=== PATIENT | female | born 1990 | race Caucasian/White ===

== ENCOUNTER → 2017-03-02 | Outpatient (REF) | payer OTHER ==
[~2017-03-02] MED LIST: ACET500C OR; COLA100C2 OR; IBUP800T OR; MOTR200T44 PO; PRENTAB8 PO; TYLE325T5 PO; VITAPRTA PO
== END ==
LOC: M LAB REF 17:25
PROVIDERS: ATTEND Advanced Practice Midwife
DX: Z12.4 Encounter for screening for malignant neoplasm of cervix (principal)

== ENCOUNTER → 2017-05-16 | Outpatient (REF) | payer OTHER | LOC: M SFHCPLAZ 16:59 | PROVIDERS: ATTEND Dermatology | DX: D22.9 Melanocytic nevi, unspecified (principal) ==

== ENCOUNTER → 2017-06-22 | Outpatient (REF) | payer OTHER | LOC: M WHC 16:48 | PROVIDERS: ATTEND Family Medicine | DX: N93.9 Abnormal uterine and vaginal bleeding, unspecified (principal) ==

== ENCOUNTER → 2017-06-23 | Outpatient (CLI) | payer OTHER | LOC: M ADAMS 11:18 | PROVIDERS: ATTEND Family Medicine | DX: N93.9 Abnormal uterine and vaginal bleeding, unspecified (principal) ==

== ENCOUNTER → 2017-06-25 | Outpatient (REF) | payer OTHER | LOC: M SFHCWAGY 12:07 | PROVIDERS: ATTEND Family Medicine | DX: N93.9 Abnormal uterine and vaginal bleeding, unspecified (principal) ==

== ENCOUNTER → 2017-06-29 | Outpatient (REF) | payer OTHER | LOC: M SFHCPLAZ 16:16 | PROVIDERS: ATTEND Family Medicine | DX: N93.9 Abnormal uterine and vaginal bleeding, unspecified (principal) ==

== ENCOUNTER → 2017-10-30 | Outpatient (CLI) | payer OTHER | LOC: M ADAMS 17:06 | PROVIDERS: ATTEND Specialist | DX: O20.0 Threatened abortion (principal); Z3A.00 Weeks of gestation of pregnancy not specified ==

== ENCOUNTER → 2017-11-01 | Outpatient (REF) | payer OTHER | LOC: M LABDRWAD 21:24 | PROVIDERS: ATTEND Specialist | DX: O20.0 Threatened abortion (principal); Z3A.00 Weeks of gestation of pregnancy not specified ==

== ENCOUNTER → 2017-11-27 | Outpatient (CLI) | payer OTHER ==
[2017-11-27 13:54] LABS: BASO % 0.5 % (0.0-1.0); EOS # 0.1 10^3/uL (0.0-0.50); EOS % 1.2 % (0.0-3.0); HEMATOCRIT 35.6 % (36.0-47.0); HEMOGLOBIN 11.9 g/dl (12.0-16.0); IMMATURE GRANULOCYTE % 0.2 % (0-0); LYMPH # 1.1 10^3/uL (1.5-6.5); MEAN CORPUSCULAR HEMOGLOBIN 28.5 pg (27.0-33.0); MEAN CORPUSCULAR HGB CONC 33.4 g/dl (32.0-36.5); MEAN CORPUSCULAR VOLUME 85.4 fl (80.0-96.0); MONO # 0.3 10^3/uL (0.0-0.8); NEUTROPHILS # 2.7 10^3/uL (1.8-7.7); NEUTROPHILS % 65.1 % (36.0-66.0); PLATELET COUNT, AUTOMATED 239 10^3/uL (150-450); RED BLOOD COUNT 4.17 10^6/uL (4.00-5.40); RED CELL DISTRIBUTION WIDTH 12.8 % (11.5-14.5); WHITE BLOOD COUNT 4.2 10^3/uL (4.0-10.0)
[2017-11-27 14:29] LABS: TOTAL PROTEIN,RANDOM URINE 10.5 MG/DL (0.0-12.0)
[2017-11-27 14:29] LABS: CREATININE,RANDOM URINE 59.1 MG/DL
[2017-11-27 16:45] LABS: CHLAMYDIA DNA AMPLIFICATION NEGATIVE (NEGATIVE); GC DNA AMPLIFICATION NEGATIVE (NEGATIVE)
[2017-11-27 23:07] LABS: ALT/SGPT 11 U/L (12-78); AST/SGOT 5 U/L (7-37); BILIRUBIN,TOTAL 0.3 MG/DL (0.2-1.0); CREATININE FOR GFR 0.54 MG/DL (0.55-1.02); GLOMERULAR FILTRATION RATE > 60.0 (>60); LDH LACTATE DEHYDROGENASE 130 U/L (84-246); URIC ACID 4.3 MG/DL (2.6-6.0)
[2017-11-28 10:48] LABS: RUBELLA IgG QUALITATIVE IMMUNE (IMMUNE)
[2017-11-28 10:57] LABS: HBsAg Prenatal NEGATIVE (NEGATIVE)
[2017-11-28 11:17] LABS: HEPATITIS C VIRUS ABY INDEX 0.2 INDEX (<0.8)
[2017-11-28 11:18] LABS: HIV 1&2 SCREEN CENTAUR NEGATIVE (NEGATIVE)
== END ==
LOC: M SMT 10:03
DX: Z34.01 Encounter for supervision of normal first pregnancy, first trimester (principal); Z3A.09 9 weeks gestation of pregnancy

== ENCOUNTER → 2018-02-12 | Outpatient (CLI) | payer OTHER | LOC: M WHC 08:31 | DX: Z36.9 Encounter for antenatal screening, unspecified (principal); Z3A.20 20 weeks gestation of pregnancy | CPT/HCPCS: 76811 ==

== ENCOUNTER → 2018-04-04 | Outpatient (CLI) | payer OTHER ==
[2018-04-04 14:27] LABS: BASO % 0.3 % (0.0-1.0); EOS # 0.1 10^3/uL (0.0-0.50); EOS % 2.1 % (0.0-3.0); HEMATOCRIT 32.3 % (36.0-47.0); HEMOGLOBIN 10.5 g/dl (12.0-15.5); IMMATURE GRANULOCYTE % 0.2 % (0-3.0); LYMPH # 1.1 10^3/uL (1.5-6.5); LYMPH % 19.4 % (24.0-44.0); MEAN CORPUSCULAR HEMOGLOBIN 30.4 pg (27.0-33.0); MEAN CORPUSCULAR HGB CONC 32.5 g/dl (32.0-36.5); MEAN CORPUSCULAR VOLUME 93.6 fl (80.0-96.0); MONO # 0.3 10^3/uL (0.0-0.8); MONO % 4.7 % (0.0-5.0); NEUTROPHILS # 4.2 10^3/uL (1.8-7.7); NEUTROPHILS % 73.3 % (36.0-66.0); PLATELET COUNT, AUTOMATED 155 10^3/uL (150-450); RED BLOOD COUNT 3.45 10^6/uL (4.00-5.40); RED CELL DISTRIBUTION WIDTH 14.2 % (11.5-14.5); WHITE BLOOD COUNT 5.7 10^3/uL (4.0-10.0)
[2018-04-04 14:35] LABS: GLUCOSE CHALLENGE TEST 1 HOUR 84 MG/DL (LESS THAN 140)
== END ==
LOC: M SMT 08:07
DX: Z34.82 Encounter for supervision of other normal pregnancy, second trimester (principal)

== ENCOUNTER → 2018-06-05 | Outpatient (REF) | payer OTHER | LOC: M LAB REF 13:13 | DX: Z34.83 Encounter for supervision of other normal pregnancy, third trimester (principal) | CPT/HCPCS: 87081 ==

== ENCOUNTER 2018-06-28 16:47 | Inpatient (IN) | payer OTHER ==
[2018-06-28 17:39] LABS: HEMATOCRIT 30.3 % (36.0-47.0); HEMOGLOBIN 10.3 g/dl (12.0-15.5); MEAN CORPUSCULAR HEMOGLOBIN 29.5 pg (27.0-33.0); MEAN CORPUSCULAR VOLUME 86.8 fl (80.0-96.0); PLATELET COUNT, AUTOMATED 144 10^3/uL (150-450); RED BLOOD COUNT 3.49 10^6/uL (4.00-5.40); RED CELL DISTRIBUTION WIDTH 14.4 % (11.5-14.5); WHITE BLOOD COUNT 8.2 10^3/uL (4.0-10.0)
[2018-06-28] MEDS: miSOPROStol 50 MCG 1/2 TAB (S0191) SL ×2 (17:45→21:50)
[2018-06-29] MEDS: miSOPROStol 50 MCG 1/2 TAB (S0191) SL ×2 (01:58→06:18)
[2018-06-29] MEDS: PROMETHAZINE INJ 25 MG/ML VIAL (J2550) IV (03:34)
[2018-06-29] MEDS: BUTORPHANOL 2 MG/ML INJ (J0595) IV (03:35)
[2018-06-29] MEDS ORDERED: OXYTOCIN 30 UNITS IN 0.9% NaCl 500ML IV BAG (J2590) As Ordered (11:18)
[2018-06-29] MEDS ORDERED: FENTANYL 2MCG/ML ROPIVACAINE 0.2% IN 0.9% NACL 200ML IVBAG As Ordered (12:05)
[2018-06-29] MEDS: OXYTOCIN DRIP 30 UNITS in APPROPRIATE DILUENT 1 EA IV ×2 (12:31→20:15)
[2018-06-29] MEDS: LR 1,000 ML IV (12:31)
[2018-06-29] MEDS ORDERED: NALOXONE INJ 0.4 MG/1 ML VIAL (J2310) IV (13:00)
[2018-06-29] MEDS ORDERED: LACTATED RINGER'S 1000 ML IV (13:00)
[2018-06-29] MEDS ORDERED: EPIDURAL COMMENT XX (13:00)
[2018-06-29] MEDS ORDERED: diphenhydrAMINE INJ 50MG/ML VIAL (J1200) IV (13:00)
[2018-06-29] MEDS ORDERED: ONDANSETRON 4MG/2ML VIAL (J2405) IV ×2 (13:00→20:15)
[2018-06-29] MEDS ORDERED: REFRIGERATOR IV KEYS XX (13:00)
[2018-06-29] MEDS ORDERED: EPIDURAL/PCA KEYS XX (13:00)
[2018-06-29] MEDS: FENTANYL/ROPIVACAINE/NACL BAG 200 ML EPIDURAL (13:00)
[2018-06-29] MEDS ORDERED: ePHEDrine SULFATE 25 MG/5 ML(5MG/ML) SYRINGE IV (13:00)
[2018-06-29] MEDS ORDERED: METHYLERGONOVINE MALEATE 0.2 MG TAB PO (20:15)
[2018-06-29] MEDS ORDERED: MEASLES,MUMPS,RUBELLA VACCINE INJ (MMR-II) (90707) SC (20:15)
[2018-06-29] MEDS ORDERED: RHOGAM 300 MCG (1500 IU) INJ (J2790) IM (20:15)
[2018-06-29] MEDS ORDERED: DOCUSATE SODIUM 100 MG CAP PO (20:15)
[2018-06-29] MEDS: IBUPROFEN 800 MG TAB PO (23:18)
[2018-06-30] MEDS: ACETAMINOPHEN 500 MG TAB PO ×2 (04:42→15:35)
[2018-06-30] MEDS: DIBUCAINE 1% OINTMENT 30GM TOP (04:42)
[2018-06-30] MEDS: IBUPROFEN 800 MG TAB PO ×2 (09:38→21:29)
[2018-06-30] MEDS: PRENATAL VITAMINS CHEWABLE TABLET PO (09:38)
[2018-07-01] MEDS: ACETAMINOPHEN 500 MG TAB PO (05:24)
[2018-07-01] MEDS: PRENATAL VITAMINS CHEWABLE TABLET PO (08:23)
== END 2018-07-01 13:15 | disposition home or self-care (01) | DRG 775 ==
LOC: M LDI 16:47 → M OBS 06-29 22:52 → M LDI 17:41
PROVIDERS: Specialist
PROC: 10D07Z3 Extraction of Products of Conception, Low Forceps, Via Natural or Artificial Opening (ICD-10-PCS; principal; 2018-06-29)
PROC: 10907ZC Drainage of Amniotic Fluid, Therapeutic from Products of Conception, Via Natural or Artificial Opening (ICD-10-PCS; 2018-06-29)
PROC: 3E0P7GC Introduction of Other Therapeutic Substance into Female Reproductive, Via Natural or Artificial Opening (ICD-10-PCS; 2018-06-29)
DX: O64.8XX0 Obstructed labor due to other malposition and malpresentation, not applicable or unspecified (principal); Z3A.39 39 weeks gestation of pregnancy; Z37.0 Single live birth

== ENCOUNTER → 2018-08-13 | Outpatient (CLI) | payer OTHER ==
[2018-08-13 15:04] LABS: HCG, SERUM QUANTITATIVE < 1.0 MIU/ML
== END ==
LOC: M SMT 09:16
DX: N91.1 Secondary amenorrhea (principal)
CPT/HCPCS: 84702

== ENCOUNTER → 2019-06-26 | Outpatient (REF) | payer OTHER | LOC: M LAB REF 13:16 | PROVIDERS: ATTEND Specialist | DX: Z12.4 Encounter for screening for malignant neoplasm of cervix (principal) ==

== ENCOUNTER → 2020-06-28 | Outpatient (REF) | payer OTHER ==
[~2020-06-28] MED LIST changes: +ACET-683 PO; +ACYC800T PO; +IBUP80TA PO; +PRENTAB9 PO
[2020-07-28 14:48] LABS: BASO % 0.3 % (0.0-1.0); EOS # 0.1 10^3/uL (0.0-0.5); EOS % 1.3 % (0.0-3.0); HEMATOCRIT 33.6 % (36.0-47.0); LYMPH # 1.2 10^3/uL (1.5-5.0); LYMPH % 17.4 % (24.0-44.0); MEAN CORPUSCULAR HEMOGLOBIN 30.1 pg (27.0-33.0); MEAN CORPUSCULAR HGB CONC 32.7 g/dl (32.0-36.5); MEAN CORPUSCULAR VOLUME 91.8 fl (80.0-96.0); MONO # 0.3 10^3/uL (0.0-0.8); NEUTROPHILS # 5.2 10^3/uL (1.5-8.5); NEUTROPHILS % 75.7 % (36.0-66.0); PLATELET COUNT, AUTOMATED 199 10^3/uL (150-450); RED BLOOD COUNT 3.66 10^6/uL (4.00-5.40); WHITE BLOOD COUNT 6.8 10^3/uL (4.0-10.0)
[2020-08-10 13:26] LABS: ALBUMIN 2.9 GM/DL (3.2-5.2); ALT/SGPT 18 U/L (12-78); BILIRUBIN,TOTAL 0.2 MG/DL (0.2-1.0); BLOOD UREA NITROGEN 8 MG/DL (7-18); CALCIUM LEVEL 8.6 MG/DL (8.5-10.1); CARBON DIOXIDE LEVEL 25 MEQ/L (21-32); CHLORIDE LEVEL 108 MEQ/L (98-107); CREATININE FOR GFR 0.58 MG/DL (0.55-1.30); GLOMERULAR FILTRATION RATE > 60.0 (>60); GLUCOSE, FASTING 84 MG/DL (70-100); POTASSIUM SERUM 3.6 MEQ/L (3.5-5.1); SODIUM LEVEL 140 MEQ/L (136-145); TOTAL PROTEIN 6.3 GM/DL (6.4-8.2); TOTAL PROTEIN,RANDOM URINE 42.8 MG/DL (0.0-12.0)
== END ==
LOC: M SFHCWAGY 09:29
PROVIDERS: ATTEND Obstetrics & Gynecology
DX: O16.3 Unspecified maternal hypertension, third trimester (principal); Z3A.00 Weeks of gestation of pregnancy not specified

== ENCOUNTER 2020-07-02 08:55 | Outpatient (CLI) | payer OTHER ==
[~2020-07-02 08:55] MED LIST changes: -ACET-683 PO; -ACYC800T PO; -IBUP80TA PO; -PRENTAB9 PO
[2020-09-14 13:17] LABS: HEMOGLOBIN 10.4 g/dl (12.0-15.5); RED BLOOD COUNT 3.47 10^6/uL (4.00-5.40); WHITE BLOOD COUNT 5.5 10^3/uL (4.0-10.0)
[2020-09-14 13:18] LABS: MEAN CORPUSCULAR HGB CONC 32.5 g/dl (32.0-36.5); MEAN CORPUSCULAR VOLUME 92.2 fl (80.0-96.0); PLATELET COUNT, AUTOMATED 151 10^3/uL (150-450)
[2020-09-26 03:22] LABS: ALT/SGPT 19 U/L (12-78); BILIRUBIN,TOTAL 0.2 MG/DL (0.2-1.0); GLOMERULAR FILTRATION RATE > 60.0 (>60); LDH LACTATE DEHYDROGENASE 124 U/L (84-246); URIC ACID 4.5 MG/DL (2.6-6.0)
[2020-09-26 03:22] LABS: CREATININE,RANDOM URINE 15.7 MG/DL; TOTAL PROTEIN,RANDOM URINE < 5.0 MG/DL (0.0-12.0)
== END 2020-07-02 12:42 | disposition home or self-care (01) ==
LOC: M LDO 08:55 → UNDOADMIN 13:00 → M MS5PR 13:00 → UNDODISIN 07-04 16:00
PROVIDERS: ATTEND Obstetrics & Gynecology
DX: O14.93 Unspecified pre-eclampsia, third trimester (principal); Z3A.31 31 weeks gestation of pregnancy

== ENCOUNTER → 2020-07-09 | Outpatient (CLI) | payer OTHER ==
[~2020-07-09] MED LIST changes: +ACET-683 PO; +ACYC800T PO; +IBUP80TA PO; +PRENTAB9 PO
--- NOTE | 2020-08-13 07:57 | REP ---
LIMITED OBSTETRIC ULTRASOUND CLINICAL: History of preeclampsia for growth evaluation. COMPARISON: 04/07/2020. TECHNIQUE: Transabdominal obstetrical ultrasound with color Doppler evaluation. FINDINGS: Examination demonstrates a single live intrauterine in cephalic presentation. Placenta noted posteriorly, grade 1, and without placenta previa or abruption. Amniotic fluid volume is normal. ALEXANDRA equals 10.9 cm. Cervix measures 4.4 cm in length and appears closed. BIOMETRIC MEASUREMENTS: BPD 74 mm 29 weeks 4 days HC 287 mm 31 weeks 4 days AC 273 mm 31 weeks 3 days FL 61 mm 31 weeks 5 days HL 55 mm 32 weeks 1 day heart rate equals 146 beats per minute. Gestational age by current measurements 31 weeks 1 day with estimated date of delivery 09/09/2020. Estimated weight 1747 grams (20th percentile). IMPRESSION: Single live advanced gestation in cephalic presentation demonstrating appropriate estimated weight and growth. Amniotic fluid volume normal. MTDD
== END ==
LOC: M WHC 13:53
PROVIDERS: ATTEND Advanced Practice Midwife
DX: O14.93 Unspecified pre-eclampsia, third trimester (principal)

== ENCOUNTER → 2020-07-28 | Outpatient (CLI) | payer OTHER ==
--- NOTE | 2020-08-17 10:00 | REP ---
LIMITED OBSTETRIC ULTRASOUND: CLINICAL: Growth evaluation. History of preeclampsia. TECHNIQUE: Transabdominal obstetric ultrasound with color Doppler evaluation. FINDINGS: Ultrasound examination demonstrates single live advanced gestation in cephalic presentation, identified by technologist. Placenta noted posteriorly and grade 1with out evidence for placenta previa or abruption. Amniotic fluid volume is normal. Cervix measures 3.8cm in length and appears closed. HEART RATE: 133bpm BPD: 81mm; 32 weeks 3 days HC: 306mm; 34 weeks 1 day AC: 289mm; 33 weeks 0 days FL: 65mm; 33 weeks 5 days HL: 59mm; 34 weeks 1 day Estimated age by current measurements: 33 weeks 3 days with estimated delivery date 09/12/2020. Estimated weight 2,142g (11th percentile) IMPRESSION: Single live advanced gestation in cephalic presentation demonstrating appropriate estimated weight and growth. No gross abnormalities are identified. MTDD
== END ==
LOC: M WHC 09:18
PROVIDERS: ATTEND Advanced Practice Midwife
DX: O14.93 Unspecified pre-eclampsia, third trimester (principal)

== ENCOUNTER → 2020-07-30 | Outpatient (REF) | payer OTHER | LOC: M SFHCWAGY 16:52 | PROVIDERS: ATTEND Advanced Practice Midwife | DX: Z34.03 Encounter for supervision of normal first pregnancy, third trimester (principal); Z3A.00 Weeks of gestation of pregnancy not specified ==

== ENCOUNTER 2020-08-13 09:20 | Inpatient (IN) | payer OTHER ==
[~2020-08-13] VITALS: Ht 165.1 cm; Wt 85.5 kg
[2020-08-13] VITALS (8 sets, daily range): BP systolic 125–156; BP diastolic 68–77
[~2020-08-13 09:20] MED LIST changes: -ACET-683 PO; -ACYC800T PO; -IBUP80TA PO; -PRENTAB9 PO
[2020-08-13] MEDS ORDERED: ACYC800T PO (09:44)
[2020-08-13] MEDS ORDERED: PRENTAB9 PO (09:44)
[2020-08-13] MEDS ORDERED: LACTATED RINGER'S 1000 ML IV STA (10:29)
[2020-08-13 10:46] LABS: BASO % 0.3 % (0.0-1.0); EOS # 0.1 10^3/uL (0.0-0.5); EOS % 1.3 % (0.0-3.0); HEMATOCRIT 32.4 % (36.0-47.0); HEMOGLOBIN 10.4 g/dl (12.0-15.5); LYMPH % 16.5 % (24.0-44.0); MEAN CORPUSCULAR HEMOGLOBIN 28.3 pg (27.0-33.0); MEAN CORPUSCULAR HGB CONC 32.1 g/dl (32.0-36.5); MONO # 0.4 10^3/uL (0.0-0.8); MONO % 6.1 % (0.0-5.0); NEUTROPHILS # 4.7 10^3/uL (1.5-8.5); NEUTROPHILS % 75.6 % (36.0-66.0); PLATELET COUNT, AUTOMATED 166 10^3/uL (150-450); RED BLOOD COUNT 3.68 10^6/uL (4.00-5.40); WHITE BLOOD COUNT 6.2 10^3/uL (4.0-10.0)
[2020-08-13] MEDS: miSOPROStol 50 MCG 1/2 TAB (S0191) PO SCH ×2 (10:46→14:48)
--- NOTE | 2020-08-13 11:01 | HPEPDOC ---
Obstetrical History & Physical General Date of Admission Aug 13, 2020 at 09:20 History of Present Illness Chief Complaint: Induction of labor (GHTN) Information Provided By: Patient Age: 30 : 5 Term: 3 Pre-term: 0 Abortions: 1 Livin Care Care: Good Care Dating Final EDC: Sep 03, 2020 Final EDC by: LMP LMP: Dec 03, 2019 EGA at Admission: 37.0 Antepartum Course Diagnos(e)s GHTN Height (inches): 65 Admission Weight (lbs.): 220 Past Medical History Past Obstetrical History #1: Past Obstetrical History: Primgravida Date of Delivery: Jul 14, 2012 Type of Delivery: Spontaneous Vaginal Del. Sex of Infant: Female (8#12) Complications: Yes (Shoulder Dystocia, Nuchal Cord) Past Obstetrical History #2: Past Obstetrical History: Multigravida Date of Delivery: Dec 11, 2014 Type of Delivery: Spontaneous Vaginal Del. Sex of : Male (8#15oz) Past Obstetrical History #3: Past Obstetrical History: Multigravida (2017) Date of Delivery: Nov 05, 2018 Type of Delivery: Spontaneous Vaginal Del. Sex of : Female (7#8oz) Complications: Yes (Forcep Delivery) [employer] History: Spontaneous Past Medical History Medical History Denies Surgical History: Other (Left Shoulder-2008) Family History Significant Family History: Other Family History MGM from HELLP Syndrome Social History Marital Status: Family situation: Spouse/partner home Psychosocial History: No pertinent psych hx * Smoker: non-smoker Alcohol: Denies Drugs: denies Imunizations Tdap status: current Influenza Status: needs Allergies Coded Allergies: No Known Drug Allergies (Verified Allergy, Unknown, 07/28/20) Medications Scheduled Acyclovir (Acyclovir) 800 Mg Tablet, 0.5 TAB PO 5XD No.137/Iron/Folic Acd ( Vitamin Tablet) 1 Each Tablet, 1 TAB PO DAILY Physical Examination Physical Examination GENERAL: Alert and oriented times three. BREAST: . ABDOMEN: Gravid and non-tender to touch. FETUS: Is vertex (VTX) by sterile vaginal examination (SVE), fetus is vertex (VTX) by Chris. EFW 7.5-8lbs HEART RATE: Regular rate and rhythm. LUNGS: Clear to auscultation (CTA). EXTREMITIES: No edema. No clonus. Deep tendon reflexes (DTRs) +2. Laboratory Data 24H LABS Laboratory Tests 2 08/13/20 09:32: Serology Scanned Report Hepatitis B Testing Pertinent Laboratoy Data Blood Type: B+ RBC Antibody Screen: Negative HIV: Negative Hepatitis B: Negative Hepatitis C: Negative Rapid Plasma Reagin: Nonreactive Rubella: Immune Varicella: Unknown Chlamydia/Gonorrhea: Negative Group B Streptococcus: Negative Glucose Tolerance Test: 65 Anatomy Ultrasound Ultrasound Date: April 07, 2020 Placenta Location: Posterior Normal Anatomy: Yes Placenta Previa: No Estimated Weight (grams): 243 Other Ultrasounds 07/09/20 Growth U/S shows fetus at 1747g (20%), ALEXANDRA 10.9cm 07/28/20 Preliminary Growth U/S shows fetus in 2142g (11%), ALEXANDRA 15cm. Steroid Therapy Steroid Therapy: No Vaginal Examination Dilation: None Effacement: other Station: -3 Cervical Consistency: Soft Cervical Position: Posterior Presentation: Cephalic presentation Assessment Heart Rate (FHR): 130 Variability: Moderate Accelerations: Positive Decelerations: None Tocometer Contractions: Yes Frequency: greater than 10 min/apart Strength: patient denies CTX's Multi-drug resistant Organism: No history of MDRO Assessment/Plan Assessment Rola is a 30-year-old (G)5 para (P)3-0-1-3 at 37+0 weeks by LMP on 12/03/19. Presents to Labor and Delivery (L&D) for IOL for GHTN per consult Dr Khan. Denies contractions, LOF, VB. States good FM today. Plan Admit and orient. Caustic Preparer and consent. Diet: Regular. Group B Streptococcus (GBS) Negative. Labs and intravenous (IV) per unit protocol. Counseled on Cytotec, Cervical balloon, Pitocin and induction of labor (IOL). Plans on epidural for pain relief. Lactated Ringers (LR): Bolus 500 mL, then saline lock. Anticipate normal spontaneous delivery (). C-S as appropriate. Kerrie Gonzalez CNM Aug 13, 2020 11:01
[2020-08-13 11:12] LABS: ALT/SGPT 12 U/L (12-78); BILIRUBIN,TOTAL 0.2 MG/DL (0.2-1.0); CREATININE FOR GFR 0.56 MG/DL (0.55-1.30); GLOMERULAR FILTRATION RATE > 60.0 (>60); LDH LACTATE DEHYDROGENASE 145 U/L (84-246); URIC ACID 5.5 MG/DL (2.6-6.0)
--- NOTE | 2020-08-13 19:42 | IPNPDOC ---
Text Note Date of Service The patient was seen on 08/13/20. NOTE Progress Reports feeling crampy. Denies LOF, bleeding VSS, no distress Cat I tracing, 140, + accels UC Q 3-4 minutes, mild SVE 1-2/50/-3, descends to -2 with UC Cooks catheter placed, inflated 60/40ml NS. Bloody show noted with insertion Start pitocin. Plans epidural Anticipate NSVB VS,Fishbone, I+O VS, Fishbone, I+O Laboratory Tests 08/13/20 10:17 Vital Signs Date Time Temp Pulse Resp B/P (MAP) Pulse Ox O2 Delivery O2 Flow Rate FiO2 08/13/20 18:17 97.0 68 16 136/77 (96) Kerrie Gonzalez CNM Aug 13, 2020 19:42
[2020-08-13] MEDS ORDERED: OXYTOCIN DRIP 30 UNITS in IV 1 EA IV SCH (19:45)
[2020-08-13] MEDS: LR 1,000 ML IV SCH (20:02)
[2020-08-13] MEDS ORDERED: PROMETHAZINE INJ 25 MG/ML VIAL (J2550) IV ONE (21:45)
[2020-08-13] MEDS ORDERED: BUTORPHANOL 2 MG/ML INJ (J0595) IV ONE (21:45)
[2020-08-14] VITALS (85 sets, daily range): BP systolic 83–194; BP diastolic 48–96
--- NOTE | 2020-08-14 00:49 | IPNPDOC ---
Text Note Date of Service The patient was seen on 08/14/20. NOTE Progress Remains comfortable after stadol/phenergan Pitocin @ 4 mu FH 135, Cat I UC 2-3 minutes x 60+ seconds, moderate SVE 5-6/75/-3, moderate bloody show Continue IOL. Consider AROM. VS,Fishbone, I+O VS, Fishbone, I+O Laboratory Tests 08/13/20 10:17 Vital Signs Date Time Temp Pulse Resp B/P (MAP) Pulse Ox O2 Delivery O2 Flow Rate FiO2 08/13/20 21:58 16 08/13/20 18:17 97.0 68 136/77 (96) I&O- Last 24 Hours up to 6 AM 08/14/20 06:00 Intake Total 980 ml Balance 980 ml Kerrie Gonzalez CNM Aug 14, 2020 00:49
[2020-08-14] MEDS ORDERED: FENTANYL 2MCG/ML ROPIVACAINE 0.2% IN 0.9% NACL 100ML IVBAG As Ordered ONE (03:11)
[2020-08-14] MEDS: FENTANYL/ROPIVACAINE/NACL BAG 100 ML EPIDURAL SCH ×2 (03:57→14:00)
[2020-08-14] MEDS ORDERED: EPIDURAL COMMENT XX SCH (04:00)
[2020-08-14] MEDS ORDERED: NALOXONE INJ 0.4MG/1ML VIAL (J2310 PER 1MG) IV PRN (04:00)
[2020-08-14] MEDS ORDERED: ONDANSETRON 4MG/2ML VIAL IV PRN ×2 (04:00→22:00)
[2020-08-14] MEDS ORDERED: REFRIGERATOR IV KEYS XX PRN (04:00)
[2020-08-14] MEDS ORDERED: ePHEDrine SULFATE 25 MG/5 ML(5MG/ML) SYRINGE IV PRN (04:00)
[2020-08-14] MEDS ORDERED: EPIDURAL/PCA KEYS XX PRN (04:00)
[2020-08-14] MEDS ORDERED: LACTATED RINGER'S 1000 ML IV PRN (04:00)
[2020-08-14] MEDS: LR 1,000 ML IV SCH ×2 (12:00→18:51)
--- NOTE | 2020-08-14 12:15 | IPNPDOC ---
Text Note Date of Service The patient was seen on 08/14/20. NOTE Intrapartum Note Rola is a 30yo with SIUP at 37w1d admitted yesterday for IOL for GHTN. She had induction started with cook sorenson catheter and pitocin. Pitocin has been titrated up, currently 18mu. She received epidural last night and is comfortable currently. No s/sx of pre-E. Vitals wnl Cat I FHRT Ctx q3-5min SCE: 5/50/-3, fundal pressure applied during ctx and FSE placed with intent for AROM which occurred without issue. Bloody show noted. Well tolerated. Will continue to titrate pitocin per protocol, may need to decrease depending on ctx pattern s/p AROM Plan to re-check in 2-4hr or earlier as indicated Dr. Merari Khan MD VS,Mariah, I+O VS, Mariah, I+O Vital Signs Date Time Temp Pulse Resp B/P (MAP) Pulse Ox O2 Delivery O2 Flow Rate FiO2 08/13/20 21:58 16 08/13/20 18:17 97.0 68 136/77 (96) I&O- Last 24 Hours up to 6 AM 08/14/20 06:00 Intake Total 980 ml Balance 980 ml Merari Khan MD Aug 14, 2020 12:15
--- NOTE | 2020-08-14 14:53 | IPNPDOC ---
Text Note Date of Service The patient was seen on 08/14/20. NOTE Intrapartum Note Pt doing well, feeling some pelvic pressure but overall comfortable. Pitocin at 18mu. Vitals wnl, afebrile Cat I FHRT ctx q3-6min SCE: /-3. FSE functioning. Will continue to titrate pitocin per protocol Closely observe Plan to re-check in 2-4hr or earlier as indicated Safe to proceed Merari Khan MD VS,Mariah, I+O VSMariah I+O Vital Signs Date Time Temp Pulse Resp B/P (MAP) Pulse Ox O2 Delivery O2 Flow Rate FiO2 08/13/20 21:58 16 08/13/20 18:17 97.0 68 136/77 (96) I&O- Last 24 Hours up to 6 AM 08/14/20 06:00 Intake Total 980 ml Balance 980 ml Merari Khan MD Aug 14, 2020 14:53
--- NOTE | 2020-08-14 17:15 | IPNPDOC ---
Text Note Date of Service The patient was seen on 08/14/20. NOTE Intrapartum Note Pt doing well, gently breathing with ctx. Pitocin at 20mu. Vitals wnl, afebrile Cat I FHRT ctx q3-4min SCE: /-3. FSE functioning. IUPC placed to assess MVUs. No s/sx of pre-E. Will continue to titrate pitocin per protocol, ok to titrate above 20 (up to 30)mu per protocol as needed to obtain adequate MVUs Discussed timeline with patient- if zero change in cervix by 2100 tonight, would be considered arrest of dilation and indication for Closely observe Plan to re-check in 2-4hr or earlier as indicated Safe to proceed Merari Khan MD VS,Mariah, I+O VSMariah I+O Vital Signs Date Time Temp Pulse Resp B/P (MAP) Pulse Ox O2 Delivery O2 Flow Rate FiO2 08/13/20 21:58 16 08/13/20 18:17 97.0 68 136/77 (96) I&O- Last 24 Hours up to 6 AM 08/14/20 06:00 Intake Total 980 ml Balance 980 ml Merari Khan MD Aug 14, 2020 17:15
[2020-08-14] MEDS ORDERED: METHYLERGONOVINE MALEATE 0.2 MG/ML VIAL (J2210) As Ordered ONE (19:52)
[2020-08-14] MEDS ORDERED: CARBOPROST TROMETHAMINE 250 MCG/ML AMP As Ordered ONE (20:19)
[2020-08-14 20:29] LABS: HEMATOCRIT 30.9 % (36.0-47.0); HEMOGLOBIN 9.6 g/dl (12.0-15.5); MEAN CORPUSCULAR HEMOGLOBIN 28.2 pg (27.0-33.0); MEAN CORPUSCULAR HGB CONC 31.1 g/dl (32.0-36.5); MEAN CORPUSCULAR VOLUME 90.6 fl (80.0-96.0); PLATELET COUNT, AUTOMATED 153 10^3/uL (150-450); RED BLOOD COUNT 3.41 10^6/uL (4.00-5.40); WHITE BLOOD COUNT 10.6 10^3/uL (4.0-10.0)
[2020-08-14] MEDS ORDERED: METHYLERGONOVINE MALEATE 0.2 MG/ML VIAL (J2210) IM ONE (22:00)
[2020-08-14] MEDS ORDERED: ACETAMINOPHEN TAB 650MG DOSE (2X325MG) PO PRN (22:00)
[2020-08-14] MEDS ORDERED: TRANEXAMIC ACID INJection 1,000 MG in D5W 100 ML IV ONE (22:00)
[2020-08-14] MEDS ORDERED: IBUPROFEN 600MG TAB PO PRN (22:00)
[2020-08-14] MEDS ORDERED: miSOPROStol 200 MCG TAB (S0191) PR ONE (22:00)
[2020-08-14] MEDS ORDERED: OXYTOCIN DRIP 30 UNITS in IV 1 EA IV SCH ×4 (22:00)
[2020-08-14] MEDS ORDERED: DIBUCAINE 1% OINTMENT 30GM TOP PRN (22:00)
[2020-08-14] MEDS ORDERED: LOPERAMIDE 2 MG CAPLET PO ONE (22:00)
[2020-08-14] MEDS ORDERED: CARBOPROST TROMETHAMINE 250 MCG/ML AMP IM ONE (22:00)
[2020-08-14] MEDS ORDERED: RHOGAM 300 MCG (1500 IU) INJ (J2790) IM SCH (22:00)
[2020-08-14] MEDS ORDERED: MEASLES,MUMPS,RUBELLA VACCINE INJ (MMR-II) (90707) SC SCH (22:00)
[2020-08-14] MEDS: LOPERAMIDE 2 MG CAPLET PO PRN (23:12)
[2020-08-15] VITALS (29 sets, daily range): BP systolic 102–128; BP diastolic 56–88
--- NOTE | 2020-08-15 00:51 | DNPDOC ---
[facility] Delivery Note Delivery Note DATE OF DELIVERY: 08/14/2020 PREDELIVERY DIAGNOSIS: 37w1d IOL for GHTN POST DELIVERY DIAGNOSIS: Delivered hemorrhage PROCEDURE: Spontaneous vaginal delivery GANG INVESTIGATOR: Dr. Merari Khan MD ANESTHESIA: epidural ESTIMATED BLOOD LOSS: 1000 mL. FINDINGS: 5 pound 9 ounce (2510g) female , Score 9/9 DELIVERY SUMMARY: Rola is a 30yo [id number] s/p at 1937 on 08/14 after undergoing IOL for GHTN, delivering at 37w1d. She had IOL started with cook sorenson catheter and pitocin (which she received >24hr). She made slow progress to 6cm, and AROM was performed with clear fluid noted. She remained 6cm for >4hr and station was -3 until finally she quickly progressed to C/C/+1. At that point she began pushing. Infant delivered OA, restituted MELISSA. Left anterior shoulder delivered followed by posterior shoulder and corpus. Spontaneous cry noted, placed on maternal abdomen. Cord clamped x2 after approximately 2 minutes and cut by FOB. With fundal massage and traction on the cord, placenta delivered spontaneously and intact with 3 vessel cord centrally inserted. At this time, patient already had approximately 500ml of EBL just from the delivery and waiting for placenta to separate while actively massaging the fundus. IV pitocin given per protocol. More uterine massage performed and fundus then firm at u-2cm with hemostasis noted initially. Inspection of perineum and vagina revealed no lacerations. Uterine massage was repeated and productive of large clot with continued trickling. Manual sweep revealed nothing retained within the uterus and the fundal portion of the uterus had excellent tone, while the lower uterine segment was boggy with "floppy cervix". At that point, patient received 0.2mg IM methergine and 800mcg DE cytotec. Gloves changed. More uterine massage and sweep of lower uterine segment produced more clot with continued trickling- this happened several times. Patient was given 250mcg IM hemabate and I walked the cervix with ring forceps, noting no obvious cervical laceration. Patient's blood pressure dropped to 80's/40's and she was bolused 500ml LR- she felt nauseous and faint at this point, but as fluid was bolused and uterotonics started to take effect, bp steadily genesis to 90's/50's then 110's/60's, and she felt much better only complaining then of fatigue. Stat CBC was performed and H/H at that point was 9.6/30.9. I left the room when patient had improved and she was hemostatic. However, at next fundal check by the nurse, patient was noted to have large amounts of clot with continued trickling, and I was called back into the room. I performed a manual sweep of ROLAND again and found only the ROLAND to be atonic again. It was at that point that I decided to place packing into the uterus (I knew that Bakri balloon would not work for the patient since her cervix was floppy and fundal portion of the uterus had extremely good tone). Uterus was packed with >2 yards of vaginal packing material, which was tolerated well by the patient. I also ordered TXA 1g IV to be given and Unasyn 3g IV q6hr while the packing is in place. Plan for packing to be removed at noon tomorrow. Sorenson catheter was replaced and will be removed tomorrow as well. Patient to remain on L&D overnight to closely observe. Will repeat CBC in the am. Total EBL 1000ml. Discussed possibility of blood transfusion with patient based on labs/sx that we see tomorrow, and she is understanding. Imodium given to counteract effects of hemabate. All counts correct x2. Patient was doing well when I left the room, infant taken to NICU for evaluation of respiratory status. MD Bill Virk Katrina D MD Aug 14, 2020 23:38
[2020-08-15] MEDS: AMPICILLIN SOD/SULBACTAM SOD 3 GM in D5W MINI-BAG PLUS 100 ML IV SCH ×3 (00:58→11:51)
[2020-08-15] MEDS: LOPERAMIDE 2 MG CAPLET PO PRN (03:18)
[2020-08-15] MEDS: ACETAMINOPHEN 500 MG TAB PO PRN (05:57)
[2020-08-15 07:39] LABS: HEMATOCRIT 21.7 % (36.0-47.0); MEAN CORPUSCULAR HEMOGLOBIN 27.8 pg (27.0-33.0); MEAN CORPUSCULAR HGB CONC 31.3 g/dl (32.0-36.5); MEAN CORPUSCULAR VOLUME 88.6 fl (80.0-96.0); PLATELET COUNT, AUTOMATED 121 10^3/uL (150-450); RED BLOOD COUNT 2.45 10^6/uL (4.00-5.40); WHITE BLOOD COUNT 8.3 10^3/uL (4.0-10.0)
[2020-08-15 07:56] LABS: HEMOGLOBIN 6.8 g/dl (12.0-15.5)
[2020-08-15] MEDS ORDERED: diphenhydrAMINE 50MG/ML VIAL (J1200) IV ONE (09:00)
[2020-08-15] MEDS: diphenhydrAMINE 50MG/ML VIAL (J1200) IV PRN ×3 (09:17→20:46)
[2020-08-15] MEDS: PRENATAL VITAMINS CHEWABLE TABLET PO SCH (09:18)
--- NOTE | 2020-08-15 09:43 | IPNPDOC ---
Progress Note Date of Service: Aug 15, 2020 Day#: 1 Progress Note PPD 1 SUBJECT: Rola is a 30yo [id number] s/p at 1937 on 08/14 after undergoing IOL for GHTN, delivering at 37w1d, and having experienced a PPH of 1000ml related to atony of lower uterine segment. For tx of PPH she received: 0.2mg IM methergine, 800mcg rectal cytotec, 250mcg IM hemabate, 1g IV TXA and ultimately had intra- uterine packing placed, which is still present. She has been receiving Unasyn 3g IV q6hr while packing in place. Also notable during her labor course, she had a "wet tap" epidural/spinal and this morning complains of headache with sudden movements and sitting up straight. She has received tylenol for DAMON and is drinking some caffeine. She has sorenson catheter in place and has not yet ambulated since delivery. Tolerating regular diet. Baby is in NICU for respiratory status. Patient has been breast pumping regularly. No n/v/f/c/CP/SOB this morning. OBJECTIVE: VITAL SIGNS: Within normal limits, afebrile. Alert and oriented times three. Abdomen: Fundus firm at U-2. Soft, NTTP. Uterine packing still in place, the tail end is outside of the vagina and has saturation of blood. Nurses have been changing the chucks pads underneath the patient regularly and there has been no brisk bleeding, only small trickle with uterine massages Extremities: no edema of BLE Labs: Starting H/H: 10.4/32.4 H/H immediately after PPH: 9.6/30.9 PPD 1 H/H: 6.8/21.7 ASSESSMENT: Rola is a 30yo [id number] s/p at 1937 on 08/14 after undergoing IOL for GHTN, delivering at 37w1d, and having experienced a PPH of 1000ml related to atony of lower uterine segment treated with multiple uterotonics and eventually uterine packing which is still in place. Vitals within normal limits, afebrile. Likely spinal headache. H/H 6.8/21.7, patient needs blood transfusion PLAN: 1. Routine PP care on L&D today until uterine packing removed, plan to remove slowly starting around mid-day 2. Transfuse 2 units of cross matched pRBCs, discussed r/b/a with patient and we both signed consent form 3. Tylenol and Motrin for pain. 4. Encourage breast pumping and visitation of baby in NICU (wheelchair until packing removed and demonstrated stability later) 5. Regular diet 6. Anesthesia has evaluated patient for possible spinal DAMON and may do blood patch tomorrow if DAMON still present Merari Khan MD VS, I&O, 24H, Fishbone Vital Signs/I&O Vital Signs Date Time Temp Pulse Resp B/P (MAP) Pulse Ox O2 Delivery O2 Flow Rate FiO2 08/15/20 09:15 94 08/15/20 09:14 115/72 (86) 08/15/20 09:13 97.3 16 99 Room Air I&O- Last 24 Hours up to 6 AM 08/15/20 06:00 Intake Total 1000 ml Output Total 6025 ml Balance -5025 ml Laboratory Data 24H LABS Laboratory Tests 2 08/14/20 20:18: Nucleated Red Blood Cells % (auto) 0.0 08/15/20 07:25: Nucleated Red Blood Cells % (auto) 0.0 CBC/BMP Laboratory Tests 08/14/20 20:18 08/15/20 07:25 Merari Khan MD Aug 15, 2020 09:42
[2020-08-15] MEDS ORDERED: NS 500 ML IV SCH (10:00)
[2020-08-15] MEDS ORDERED: NS 500 ML IV ONE (10:15)
[2020-08-15] MEDS: FIORICET TAB PO PRN (11:39)
[2020-08-15] MEDS: METHYLERGONOVINE MALEATE 0.2 MG TAB PO SCH ×2 (16:47→22:07)
--- NOTE | 2020-08-15 16:58 | IPNPDOC ---
Text Note Date of Service The patient was seen on 08/15/20. NOTE Removal of packing Rola is doing ok. She has a bit of swelling she noted under her left eye, sensation of some increased fullness to her face, and her left ear feels warm. Likely related to something she has received, but hard to discern whether blood products (finished transfusion of 2nd pRBC at 1420) or Unasyn or fioricet, etc. She has received benadryl, no relief quite yet. Still feels nauseous with headache when she tries to stand up/ambulate- may be related to spinal headache from wet tap. She did go to visit baby in NICU earlier which made her happy. She continues to pump colostrum for baby. Vitals wnl, afebrile Vaginal packing very slowly removed over the course of 15 minutes with no noted vaginal bleeding during or immediately after Robust UOP, sorenson still in place Will plan to observe very closely- patient instructed to remain lying down for 1 hour, then will attempt to get her up to bathroom If no uptick in bleeding other than normal lochia, sorenson catheter can be removed Will begin methergine PO series for 3 total doses q4hr Will discontinue Unasyn CBC 6hr post transfusion Safe to proceed Merari Khan MD VS,Mariah I+O VSMariah I+O Laboratory Tests 08/14/20 20:18 08/15/20 07:25 Vital Signs Date Time Temp Pulse Resp B/P (MAP) Pulse Ox O2 Delivery O2 Flow Rate FiO2 08/15/20 14:21 97.6 114 116/82 99 Room Air 08/15/20 13:56 18 08/15/20 10:03 98.0 I&O- Last 24 Hours up to 6 AM 08/15/20 06:00 Intake Total 1000 ml Output Total 6025 ml Balance -5025 ml Merari Khan MD Aug 15, 2020 16:58
[2020-08-15 20:23] LABS: HEMOGLOBIN 8.6 g/dl (12.0-15.5); MEAN CORPUSCULAR HEMOGLOBIN 28.3 pg (27.0-33.0); MEAN CORPUSCULAR HGB CONC 31.9 g/dl (32.0-36.5); MEAN CORPUSCULAR VOLUME 88.8 fl (80.0-96.0); PLATELET COUNT, AUTOMATED 126 10^3/uL (150-450); RED BLOOD COUNT 3.04 10^6/uL (4.00-5.40); WHITE BLOOD COUNT 8.2 10^3/uL (4.0-10.0)
[2020-08-16] MEDS: METHYLERGONOVINE MALEATE 0.2 MG TAB PO SCH (01:19)
[2020-08-16 02:00] VITALS: BP 140/88
[2020-08-16] MEDS: diphenhydrAMINE 50MG/ML VIAL (J1200) IV PRN (02:31)
[2020-08-16] MEDS: ACETAMINOPHEN 500 MG TAB PO PRN ×2 (02:32→10:32)
[2020-08-16 06:00] VITALS: BP 116/64
[2020-08-16] MEDS: IBUPROFEN 800 MG TAB PO PRN ×2 (06:44→14:13)
[2020-08-16] MEDS: PRENATAL VITAMINS CHEWABLE TABLET PO SCH (08:39)
--- NOTE | 2020-08-16 09:10 | IPNPDOC ---
Progress Note Date of Service: Aug 16, 2020 Day#: 1 Progress Note PPD 2 SUBJECT: Rola is a 30yo [id number] s/p at 193 on 08/14 after undergoing IOL for GHTN, delivering at 37w1d, and having experienced a PPH of 1000ml related to atony of lower uterine segment. For tx of PPH she received: 0.2mg IM methergine, 800mcg rectal cytotec, 250mcg IM hemabate, 1g IV TXA and ultimately had intra- uterine packing placed. She received Unasyn 3g IV q6hr while packing was in place. Hgb nadired at 6.8, so she was transfused 2 units pRBCs and Hgb increased to 8.6. Packing was removed afternoon of PPD 1 with only normal lochia since. She received PO methergine series for 12hr after packing removed. Also notable during her labor course, she had a "wet tap" epidural/spinal and has had waxing/waning headache with sudden movements and sitting up straight. She has received tylenol for DAMON and notes it is not very bad this morning. She has been voiding spontaneously without issue. No lightheadedness/dizziness with walking. Tolerating regular diet. Baby is in NICU for respiratory status and patient visits regularly. Patient has been breast pumping. No n/v/f/c/CP/SOB. OBJECTIVE: VITAL SIGNS: Within normal limits, afebrile. Alert and oriented times three. Abdomen: Fundus firm at U-2. Soft, NTTP. Extremities: no edema of BLE and no pain with palpation of calves Labs: Starting H/H: 10.4/32.4 H/H immediately after PPH: 9.6/30.9 PPD 1 H/H: 6.8/21.7 H/H post-transfusion: 8.05/15 ASSESSMENT: Rola is a 30yo [id number] s/p at 193 on 08/14 after undergoing IOL for GHTN, delivering at 37w1d, and having experienced a PPH of 1000ml related to atony of lower uterine segment treated with multiple uterotonics and eventually uterine packing which was removed afternoon of PPD 1 with only normal lochia since. Vitals within normal limits, afebrile. Possible spinal headache waxes and wanes. Hgb improved from 6.8 to 8.6 with transfusion of 2u pRBCs and patient has no sx of anemia. Hemodynamically stable with no e/o infection. PLAN: 1. Routine PP care 2. Tylenol and Motrin for pain. 3. Encourage breast pumping and visitation of baby in NICU 4. Regular diet 5. Anesthesia has evaluated patient for possible spinal DAMON and may do blood patch if indicated 6. Likely discharge to home vs boarding tomorrow Merari Khan MD VS, I&O, 24H, [facility] Vital Signs/I&O Vital Signs Date Time Temp Pulse Resp B/P (MAP) Pulse Ox O2 Delivery O2 Flow Rate FiO2 08/16/20 06:00 97.6 69 17 116/64 (81) 98 Room Air 08/15/20 10:03 98.0 I&O- Last 24 Hours up to 6 AM 08/16/20 06:00 Intake Total 2302 ml Output Total 5600 ml Balance -3298 ml Laboratory Data 24H LABS Laboratory Tests 2 08/15/20 20:13: Nucleated Red Blood Cells % (auto) 0.0 CBC/BMP Laboratory Tests 08/15/20 20:13 Merari Khan MD Aug 16, 2020 09:10
[2020-08-16] MEDS ORDERED: fentaNYL 100 MCG/2 ML INJECTION (J3010) As Ordered ONE (18:00)
[2020-08-16] MEDS ORDERED: MIDAZOLAM INJ 2MG/2ML VIAL (J2250 PER 1MG) As Ordered ONE (18:00)
[2020-08-16] MEDS ORDERED: SLF 3 ML SYR IV PRN (18:30)
[2020-08-16 19:45] VITALS: BP 121/69
[2020-08-16] MEDS ORDERED: fentaNYL 100 MCG/2 ML INJECTION (J3010) IV PRN (20:00)
[2020-08-16] MEDS ORDERED: MIDAZOLAM INJ 2MG/2ML VIAL (J2250 PER 1MG) IV PRN (20:00)
[2020-08-16] MEDS ORDERED: LR 1,000 ML IV SCH (20:00)
[2020-08-16 22:00] VITALS: BP 119/73
[2020-08-16] MEDS: SLF 3 ML SYR IV SCH (22:00)
[2020-08-16] MEDS: FIORICET TAB PO PRN (22:50)
[2020-08-17 02:00] VITALS: BP 128/86
[2020-08-17] MEDS: FIORICET TAB PO PRN ×3 (05:18→13:14)
[2020-08-17 06:00] VITALS: BP 134/79
[2020-08-17] MEDS: SLF 3 ML SYR IV SCH (06:01)
[2020-08-17] MEDS ORDERED: IBUP80TA PO (07:18)
[2020-08-17] MEDS ORDERED: ACET-683 PO (07:18)
[2020-08-17] MEDS: PRENATAL VITAMINS CHEWABLE TABLET PO SCH (09:00)
[2020-08-17 10:00] VITALS: BP 144/82
== END 2020-08-17 14:10 | disposition home or self-care (01) | DRG 807 ==
LOC: M LDI 09:20 → M OBS 08-15 23:09
PROVIDERS: ADMIT Advanced Practice Midwife; ATTEND Obstetrics & Gynecology
PROC: 3E0P7GC Introduction of Other Therapeutic Substance into Female Reproductive, Via Natural or Artificial Opening (ICD-10-PCS; 2020-08-13)
PROC: 10E0XZZ Delivery of Products of Conception, External Approach (ICD-10-PCS; principal; 2020-08-14)
PROC: 10907ZC Drainage of Amniotic Fluid, Therapeutic from Products of Conception, Via Natural or Artificial Opening (ICD-10-PCS; 2020-08-14)
PROC: 30233N1 Transfusion of Nonautologous Red Blood Cells into Peripheral Vein, Percutaneous Approach (ICD-10-PCS; 2020-08-15)
PROC: 3E0R3KZ Introduction of Other Diagnostic Substance into Spinal Canal, Percutaneous Approach (ICD-10-PCS; 2020-08-16)
DX: O13.4 Gestational [pregnancy-induced] hypertension without significant proteinuria, complicating childbirth (principal); Z37.0 Single live birth; Z3A.37 37 weeks gestation of pregnancy; O72.1 Other immediate postpartum hemorrhage; O74.5 Spinal and epidural anesthesia-induced headache during labor and delivery

== ENCOUNTER → 2021-04-15 | Outpatient (CLI) | payer OTHER ==
[~2021-04-15] MED LIST changes: +ACET-683 PO; +ACYC1TAB4 PO; +IBUP80TA PO; +PRENTAB9 PO
== END ==
LOC: M WHC 09:35
PROVIDERS: ATTEND Specialist
DX: Z53.20 Procedure and treatment not carried out because of patient's decision for unspecified reasons (principal)

== ENCOUNTER → 2021-04-21 | Outpatient (CLI) | payer OTHER ==
--- NOTE | 2021-04-21 12:32 | REP ---
INDICATION: N94.6 DYSMENORRHEA COMPARISON: None. TECHNIQUE: Transabdominal pelvic ultrasound followed by transvaginal examination for better evaluation of the endometrium and adnexa with color Doppler evaluation of the ovaries. FINDINGS: Bladder is unremarkable and measures 12.4 x 7.7 x 9.9 cm. Normal anteverted uterus measures 6.3 x 2.5 x 5.4 cm. The endometrial complex measures 5 mm thickness. Small 4 mm endometrial echogenic focus is nonspecific and likely represents calcification. Bilateral ovaries are normal in appearance and vascularity without evidence for torsion. Right ovary measures 4.0 x 3.0 x 3.7 cm with 2.8 cm dominant follicle; R I = 0.53. Left ovary measures 2.7 x 1.6 x 2.5 cm; R I = 0.57. No pelvic fluid or adnexal mass lesion IMPRESSION: Essentially normal pelvic ultrasound. <Electronically signed by Olvin Greer > 04/21/21 [id number]
== END ==
LOC: M WHC 11:01
PROVIDERS: ATTEND Specialist
DX: N94.6 Dysmenorrhea, unspecified (principal)

== ENCOUNTER → 2021-06-22 | Outpatient (REF) | payer OTHER ==
[2021-06-22 17:06] LABS: BASO % 0.8 % (0.0-1.0); EOS # 0.2 10^3/uL (0.0-0.5); EOS % 3.5 % (0.0-3.0); HEMATOCRIT 40.2 % (36.0-47.0); HEMOGLOBIN 12.6 g/dl (12.0-15.5); LYMPH # 1.6 10^3/uL (1.5-5.0); LYMPH % 33.3 % (24.0-44.0); MEAN CORPUSCULAR HEMOGLOBIN 26.5 pg (27.0-33.0); MEAN CORPUSCULAR HGB CONC 31.3 g/dl (32.0-36.5); MEAN CORPUSCULAR VOLUME 84.5 fl (80.0-96.0); MONO # 0.3 10^3/uL (0.0-0.8); MONO % 5.4 % (2.0-8.0); NEUTROPHILS # 2.8 10^3/uL (1.5-8.5); NEUTROPHILS % 56.8 % (36.0-66.0); PLATELET COUNT, AUTOMATED 236 10^3/uL (150-450); RED BLOOD COUNT 4.76 10^6/uL (4.00-5.40); WHITE BLOOD COUNT 4.8 10^3/uL (4.0-10.0)
[2021-06-22 17:43] LABS: ALBUMIN 4.3 GM/DL (3.2-5.2); ALT/SGPT 19 U/L (12-78); BILIRUBIN,TOTAL 0.3 MG/DL (0.2-1.0); BLOOD UREA NITROGEN 14 MG/DL (7-18); CALCIUM LEVEL 9.4 MG/DL (8.5-10.1); CARBON DIOXIDE LEVEL 28 MEQ/L (21-32); CHLORIDE LEVEL 106 MEQ/L (98-107); CHOLESTEROL LEVEL 163 MG/DL (<200); CREATININE FOR GFR 0.76 MG/DL (0.55-1.30); GLOMERULAR FILTRATION RATE > 60.0 (>60); GLUCOSE, FASTING 89 MG/DL (70-100); HDL CHOLESTEROL 25 MG/DL (>40); NON-HDL-C 138 MG/DL; POTASSIUM SERUM 4.3 MEQ/L (3.5-5.1); PROLACTIN 4.4 NG/ML; SODIUM LEVEL 140 MEQ/L (136-145); TOTAL PROTEIN 7.9 GM/DL (6.4-8.2); TRIGLYCERIDES LEVEL 433 MG/DL (<150)
== END ==
LOC: M SFHCADAM 11:37
PROVIDERS: ATTEND Family Medicine
DX: Z00.00 Encounter for general adult medical examination without abnormal findings (principal); Z87.59 Personal history of other complications of pregnancy, childbirth and the puerperium; R53.83 Other fatigue

== ENCOUNTER → 2021-07-08 | Outpatient (REF) | payer OTHER | LOC: M SFHCADAM 09:41 | PROVIDERS: ATTEND Family Medicine | DX: R79.89 Other specified abnormal findings of blood chemistry (principal) ==

== ENCOUNTER → 2022-03-21 | Outpatient (CLI) | payer OTHER | LOC: M WHC 07:54 | PROVIDERS: ATTEND Family Medicine | DX: N63.11 Unspecified lump in the right breast, upper outer quadrant (principal); N64.4 Mastodynia | CPT/HCPCS: 76642; 77065; G0279 ==

== ENCOUNTER → 2022-03-30 | Outpatient (REF) | payer OTHER | LOC: M SFHCADAM 15:58 | PROVIDERS: ATTEND Physician Assistant Medical | DX: R53.82 Chronic fatigue, unspecified (principal); M25.519 Pain in unspecified shoulder; M79.10 Myalgia, unspecified site ==

== ENCOUNTER → 2022-03-30 | Outpatient (REF) | payer OTHER ==
[2022-03-30 16:25] LABS: BASO % 0.5 % (0.0-1.0); EOS # 0.1 10^3/uL (0.0-0.5); EOS % 1.5 % (0.0-3.0); HEMATOCRIT 36.6 % (36.0-47.0); HEMOGLOBIN 12.1 g/dl (12.0-15.5); LYMPH # 1.8 10^3/uL (1.5-5.0); LYMPH % 29.6 % (24.0-44.0); MEAN CORPUSCULAR HEMOGLOBIN 27.4 pg (27.0-33.0); MEAN CORPUSCULAR HGB CONC 33.1 g/dl (32.0-36.5); MONO # 0.3 10^3/uL (0.0-0.8); MONO % 5.3 % (2.0-8.0); NEUTROPHILS # 3.9 10^3/uL (1.5-8.5); NEUTROPHILS % 62.9 % (36.0-66.0); PLATELET COUNT, AUTOMATED 194 10^3/uL (150-450); RED BLOOD COUNT 4.41 10^6/uL (4.00-5.40); WHITE BLOOD COUNT 6.2 10^3/uL (4.0-10.0)
[2022-03-30 16:53] LABS: ERYTHROCYTE SEDIMENTATION RATE 13 mm/hr (0-20)
[2022-03-30 17:09] LABS: ALBUMIN 4.1 GM/DL (3.2-5.2); ALT/SGPT 17 U/L (12-78); BILIRUBIN,TOTAL 0.4 MG/DL (0.2-1.0); BLOOD UREA NITROGEN 16 MG/DL (7-18); CALCIUM LEVEL 8.8 MG/DL (8.5-10.1); CARBON DIOXIDE LEVEL 27 MEQ/L (21-32); CHLORIDE LEVEL 108 MEQ/L (98-107); CREATININE FOR GFR 0.76 MG/DL (0.55-1.30); FREE T4 0.88 NG/DL (0.76-1.46); GLOMERULAR FILTRATION RATE > 60.0 (>60); GLUCOSE, FASTING 90 MG/DL (70-100); POTASSIUM SERUM 3.7 MEQ/L (3.5-5.1); SODIUM LEVEL 139 MEQ/L (136-145); TOTAL 25(OH) VITAMIN D 12.4 NG/ML (30.0-100.0); TOTAL PROTEIN 7.3 GM/DL (6.4-8.2); VITAMIN B12 LEVEL 390 PG/ML
[2022-04-01 21:06] LABS: ANA (HEP2) Negative (.)
== END ==
LOC: M SFHCADAM 14:56
PROVIDERS: ATTEND Physician Assistant Medical
DX: R53.82 Chronic fatigue, unspecified (principal); M25.519 Pain in unspecified shoulder; M79.10 Myalgia, unspecified site

== ENCOUNTER → 2022-05-23 | Outpatient (REF) | payer OTHER ==
[2022-05-23 19:20] LABS: CHOLESTEROL LEVEL 170 MG/DL (<200); CHOLESTEROL RISK RATIO 15.454 (<5); HDL CHOLESTEROL 11 MG/DL (>40); NON-HDL-C 159 MG/DL; RHEUMATOID FACTOR QUANT < 10.0 IU/ML (<15.0); TRIGLYCERIDES LEVEL 1650 MG/DL (<150); URIC ACID 7.7 MG/DL (2.6-6.0)
== END ==
LOC: M SFHCADAM 11:57
PROVIDERS: ATTEND Family Medicine
DX: M25.50 Pain in unspecified joint (principal)

== ENCOUNTER → 2022-05-23 | Outpatient (CLI) | payer OTHER | LOC: M ADAMS 12:01 | PROVIDERS: ATTEND Family Medicine | DX: M25.50 Pain in unspecified joint (principal) ==

== ENCOUNTER → 2022-06-09 | Outpatient (CLI) | payer OTHER ==
[~2022-06-09] MED LIST changes: +PROHANCE 279.3MG/ML 15ML VIAL ONE
== END ==
LOC: M PLAIMG 08:04
PROVIDERS: ATTEND Family Medicine
DX: R29.90 Unspecified symptoms and signs involving the nervous system (principal); R93.0 Abnormal findings on diagnostic imaging of skull and head, not elsewhere classified
CPT/HCPCS: 70553; A9576

== ENCOUNTER → 2022-10-17 | Outpatient (REF) ==
[~2022-10-17] MED LIST changes: -PROHANCE 279.3MG/ML 15ML VIAL ONE
[2022-10-17 19:17] LABS: INFLUENZA A AMPLIFICATION NEGATIVE (NEGATIVE); INFLUENZA B AMPLIFICATION NEGATIVE (NEGATIVE)
== END ==
LOC: M EMP 09:00
PROVIDERS: ATTEND Family Medicine
DX: Z20.822 Contact with and (suspected) exposure to COVID-19 (principal)

== ENCOUNTER → 2022-11-09 | Outpatient (REF) | LOC: M EMP 08:13 | PROVIDERS: ATTEND Family Medicine | DX: Z11.52 Encounter for screening for COVID-19 (principal) ==

== ENCOUNTER → 2023-08-08 | Outpatient (REF) | LOC: M EMP 08:47 | PROVIDERS: ATTEND Family Medicine | DX: Z11.52 Encounter for screening for COVID-19 (principal) ==

== ENCOUNTER → 2024-08-19 | Outpatient (REF) | payer OTHER | LOC: M SFHCADAM 12:25 | PROVIDERS: ATTEND Physician Assistant Medical | DX: R05.1 Acute cough (principal) ==

== ENCOUNTER → 2024-09-09 | Outpatient (CLI) | payer OTHER ==
[2024-09-09 14:41] LABS: BASO % 0.7 % (0.0-1.0); EOS # 0.1 10^3/uL (0.0-0.5); EOS % 2.2 % (0.0-3.0); HEMATOCRIT 37.8 % (36.0-47.0); HEMOGLOBIN 12.1 g/dl (12.0-15.5); LYMPH # 1.5 10^3/uL (1.5-5.0); LYMPH % 32.5 % (24.0-44.0); MEAN CORPUSCULAR HEMOGLOBIN 28.5 pg (27.0-33.0); MEAN CORPUSCULAR VOLUME 88.9 fl (80.0-96.0); MONO # 0.3 10^3/uL (0.0-0.8); MONO % 6.1 % (2.0-8.0); NEUTROPHILS # 2.7 10^3/uL (1.5-8.5); NEUTROPHILS % 58.3 % (36.0-66.0); PLATELET COUNT, AUTOMATED 161 10^3/uL (150-450); RED BLOOD COUNT 4.25 10^6/uL (4.00-5.40); WHITE BLOOD COUNT 4.6 10^3/uL (4.0-10.0)
[2024-09-09 14:56] LABS: ERYTHROCYTE SEDIMENTATION RATE 10 mm/hr (0-20)
[2024-09-09 19:02] LABS: ALBUMIN 3.7 G/DL (3.2-5.2); ALKALINE PHOSPHATASE 106 U/L (46-116); ALT/SGPT 17 U/L (7.0-40); AST/SGOT < 8 U/L (<34); BILIRUBIN,TOTAL 0.4 MG/DL (0.3-1.2); BLOOD UREA NITROGEN 11 MG/DL (9-23); C REACTIVE PROTEIN QUANTITATIV < 0.40 MG/DL (<1.0); CALCIUM LEVEL 9.2 MG/DL (8.5-10.1); CARBON DIOXIDE LEVEL 28 MMOL/L (20-31); CHLORIDE LEVEL 108 MMOL/L (98-107); CHOLESTEROL LEVEL 162 MG/DL (<200); CHOLESTEROL RISK RATIO 6.83 (<5); CREATININE FOR GFR 0.74 MG/DL (0.55-1.30); GLOMERULAR FILTRATION RATE > 60.0 (>60); GLUCOSE, FASTING 72 MG/DL (60-100); HDL CHOLESTEROL 23.7 MG/DL (>40); NON-HDL-C 138.3 MG/DL; POTASSIUM SERUM 3.9 MMOL/L (3.5-5.1); SODIUM LEVEL 141 MMOL/L (136-145); TRIGLYCERIDES LEVEL 413 MG/DL (<150); URIC ACID 7.1 MG/DL (3.1-7.8)
[2024-09-09 19:22] LABS: COMPLEMENT C4 31.3 MG/DL (12-36); RHEUMATOID FACTOR QUANT 8.1 IU/ML (<14)
[2024-09-10 15:45] LABS: CYCLIC CITRULLINATED PEPTIDE < 16 UNITS (<20)
[2024-09-10 15:47] LABS: ANA SCREEN, IFA NEGATIVE (NEGATIVE)
== END ==
LOC: M LABDRWAD 10:32
PROVIDERS: ATTEND Family Medicine
DX: E78.1 Pure hyperglyceridemia (principal); M35.3 Polymyalgia rheumatica; T78.3XXS Angioneurotic edema, sequela

== ENCOUNTER → 2024-10-03 | Outpatient (CLI) | payer OTHER | LOC: M WHC 11:36 | PROVIDERS: ATTEND Obstetrics & Gynecology | DX: N88.8 Other specified noninflammatory disorders of cervix uteri (principal); Z97.5 Presence of (intrauterine) contraceptive device ==

== ENCOUNTER → 2024-10-13 | Outpatient (REF) | payer OTHER ==
[2024-10-15 15:52] LABS: HPV APTIMA Not Detected (Not Detected)
== END ==
LOC: M PLALAB 13:57
PROVIDERS: ATTEND Obstetrics & Gynecology
DX: Z01.419 Encounter for gynecological examination (general) (routine) without abnormal findings (principal); L91.8 Other hypertrophic disorders of the skin
CPT/HCPCS: 87624; 88305; G0123

== ENCOUNTER → 2025-09-03 | Outpatient (CLI) | payer OTHER | LOC: M WHC 07:48 | PROVIDERS: ATTEND Family Medicine | DX: N63.10 Unspecified lump in the right breast, unspecified quadrant (principal); N64.4 Mastodynia | CPT/HCPCS: 76641; 76642; 77066; G0279 ==